=== PATIENT | female | born 1995 | race Caucasian/White ===

== ENCOUNTER 2020-06-01 21:18 | Emergency (ER) | payer MEDICAID ==
[~2020-06-01] VITALS: Ht 165.1 cm; Wt 77.1 kg
[2020-06-01 21:29] VITALS: Ht 165.1 cm; Wt 77.1 kg
[2020-06-02 00:26] LABS: BASOPHIL % 1.9 % (0.2-1.3); PLATELET COUNT 363 x10^3mcL (179-408)
[2020-06-02 01:23] VITALS: BP 101/49
== END 2020-06-02 01:23 | disposition home or self-care (01) ==
LOC: ED 21:18
DX: O20.0 Threatened abortion (principal); Z3A.01 Less than 8 weeks gestation of pregnancy; D64.9 Anemia, unspecified